=== PATIENT | male | born 1990 | race Caucasian/White ===

== ENCOUNTER 2018-06-21 10:20 | Emergency (ER) | payer MEDICAID ==
[~2018-06-21] VITALS: Ht 177.8 cm; Wt 101.0 kg
[~2018-06-21 10:20] MED LIST: DIAZ5TAB PO; IBUP-1986 PO
[2018-06-21 10:36] VITALS: BP 119/60
[2018-06-21] MEDS ORDERED: DOXY100C43 PO (10:50)
[2018-06-21] MEDS ORDERED: LIDOcaine 1% w/epiNEPHrine 1:200,000 30ml vial IM ONE (10:50)
== END 2018-06-21 11:14 | disposition home or self-care (01) ==
LOC: ER 10:21
DX: L02.414 Cutaneous abscess of left upper limb (principal); Z79.899 Other long term (current) drug therapy
CPT/HCPCS: 10060; 99283; J3490